=== PATIENT | male | born 1975 ===

== ENCOUNTER 2022-01-17 11:30 | Inpatient (IN) | payer OTHER ==
[2022-01-17] MEDS ORDERED: LOSARTAN POTASS25 MG PO (12:54)
[2022-01-24] MEDS ORDERED: APRESOLINE 10MG10 MG PO (12:27)
[2022-01-24] MEDS ORDERED: TRAMADOL HCL50 MG PO (12:27)
[2022-01-24] MEDS ORDERED: COZAAR50 MG PO (12:27)
[2022-01-24] MEDS ORDERED: NORFLEX100MG PO (12:27)
[2022-01-30] MEDS ORDERED: ESCITALOPRAM OX10 MG (13:01)
[2022-01-30] MEDS ORDERED: TRULICITY1.5 MG/0.5 (13:01)
[2022-01-30] MEDS ORDERED: OPTIMAL D31250 MCG (13:01)
[2022-01-30] MEDS ORDERED: PREGABALIN150 MG (13:01)
[2022-01-30] MEDS ORDERED: FAMOTIDINE40 MG (13:01)
[2022-02-02] MEDS ORDERED: PERCOCET 5-3251 EACH PO (15:04)
== END 2022-02-02 23:08 | disposition home or self-care (01) | DRG 330 ==
LOC: SURH 01-23 11:30 → O/R 01-30 07:40 → SURH 01-30 07:40 → O/R 01-30 12:09 → SURH 01-30 19:57
PROVIDERS: ADMIT Surgery; ATTEND Surgery
PROC: 0DBP4ZZ Excision of Rectum, Percutaneous Endoscopic Approach (ICD-10-PCS; 2022-01-30)
PROC: 07BC4ZZ Excision of Pelvis Lymphatic, Percutaneous Endoscopic Approach (ICD-10-PCS; 2022-01-30)
PROC: 0DTN4ZZ Resection of Sigmoid Colon, Percutaneous Endoscopic Approach (ICD-10-PCS; principal; 2022-01-30 12:15)
PROC: 4A12X4Z Monitoring of Cardiac Electrical Activity, External Approach (ICD-10-PCS; 2022-01-31)
DX: K57.32 Diverticulitis of large intestine without perforation or abscess without bleeding (principal); K92.1 Melena; D37.4 Neoplasm of uncertain behavior of colon; K63.5 Polyp of colon; R59.0 Localized enlarged lymph nodes; I11.9 Hypertensive heart disease without heart failure; Z20.822 Contact with and (suspected) exposure to COVID-19; K66.0 Peritoneal adhesions (postprocedural) (postinfection)

== ENCOUNTER 2022-01-22 17:16 | Inpatient (IN) | payer OTHER ==
[~2022-01-22] VITALS: Ht 182.9 cm; Wt 144.7 kg
[~2022-01-22 17:16] MED LIST: LOSARTAN POTASS25 MG PO
[2022-01-24] MEDS ORDERED: APRESOLINE 10MG10 MG PO (12:27)
[2022-01-24] MEDS ORDERED: NORFLEX100MG PO (12:27)
[2022-01-24] MEDS ORDERED: TRAMADOL HCL50 MG PO (12:27)
[2022-01-24] MEDS ORDERED: COZAAR50 MG PO (12:27)
== END 2022-01-24 14:46 | disposition home or self-care (01) | DRG 305 ==
LOC: ER 17:16 → MEDJ 22:15 → SEC-K 22:15 → MEDJ 22:46
PROVIDERS: ADMIT Internal Medicine Geriatric Medicine; ATTEND Internal Medicine Geriatric Medicine
PROC: B54DZZZ Ultrasonography of Bilateral Lower Extremity Veins (ICD-10-PCS; principal; 2022-01-22)
PROC: B24BZZZ Ultrasonography of Heart with Aorta (ICD-10-PCS; 2022-01-23)
DX: I16.0 Hypertensive urgency (principal); E66.01 Morbid (severe) obesity due to excess calories; E78.5 Hyperlipidemia, unspecified; G47.39 Other sleep apnea; I87.2 Venous insufficiency (chronic) (peripheral); Z20.822 Contact with and (suspected) exposure to COVID-19; I10 Essential (primary) hypertension